=== PATIENT | male | born 1985 | race Hispanic/Latino ===

== ENCOUNTER 2024-10-08 13:36 | Emergency (ER) | payer OTHER ==
[~2024-10-08] VITALS: Ht 167.6 cm; Wt 91.7 kg
[2024-10-08] MEDS ORDERED: NEOMYCIN/POLYMYXIN/HYDROCORT 10 ML HOME.PACK OTIC ONE (15:30)
[2024-10-08 15:39] VITALS: BP 143/99
== END 2024-10-08 15:40 | disposition home or self-care (01) ==
LOC: ED 13:36
DX: H60.93 Unspecified otitis externa, bilateral (principal)
CPT/HCPCS: 99282